=== PATIENT | female | born 1990 | race Caucasian/White ===

== ENCOUNTER 2024-01-19 00:51 | Emergency (ER) | payer OTHER, SELFPAY ==
--- NOTE | 2024-01-19 | ECG_ITS ---
Test Reason : CHEST PAIN Blood Pressure : / mmHG Vent. Rate : 105 BPM Atrial Rate : 105 BPM P-R Int : 128 ms QRS Dur : 094 ms QT Int : 330 ms P-R-T Axes : 054 065 037 degrees QTc Int : 436 ms Sinus tachycardia Incomplete right bundle branch block Borderline ECG No previous ECGs available Referred By: Generic ED Physician Electronically Signed By:Gurwinder Champagne
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
[2024-01-19 01:01] VITALS: BP 124/80; BP 124/81; PULSE 110; RESP 18; O2SAT 95; O2SAT 98; BMI 31.2
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
[2024-01-19 04:27] VITALS: BP 119/79; PULSE 90; RESP 14; TEMP 36.8; O2SAT 100
[2024-01-19] MEDS: Acetaminophen 325 MG TABLET 975 MG PO (04:30)
[2024-01-19] MEDS: Ibuprofen 600 MG TABLET PO (04:30)
[2024-01-19 04:32] VITALS: BP 119/79; PULSE 90; RESP 14; TEMP 36.8; O2SAT 100
== END 2024-01-19 04:35 | disposition home or self-care (01) ==
PROVIDERS: Emergency Provider Emergency Medicine
DX: S20.219A Contusion of unspecified front wall of thorax, initial encounter (principal); S80.01XA Contusion of right knee, initial encounter; R07.89 Other chest pain; M25.561 Pain in right knee; V43.52XA Car driver injured in collision with other type car in traffic accident, initial encounter; Y93.89 Activity, other specified; Y92.488 Other paved roadways as the place of occurrence of the external cause; Y99.8 Other external cause status
CPT/HCPCS: 71046; 73564; 93005; 99284; 99285

== ENCOUNTER → 2024-01-19 01:18 | Outpatient (BNV) | payer OTHER, SELFPAY | PROVIDERS: Emergency Provider Emergency Medicine; Visit Provider Internal Medicine Cardiovascular Disease | DX: R07.9 Chest pain, unspecified (principal) | CPT/HCPCS: 93010 ==